=== PATIENT | male | born 1960 | race Hispanic/Latino ===

== ENCOUNTER 2018-03-09 15:17 | Inpatient (IN) | payer OTHER ==
[~2018-03-09] VITALS: Ht 167.6 cm; Wt 83.6 kg
[~2018-03-09 15:17] MED LIST: INSU100V12 SQ; LACT10SO9 PO; LISI10TA7 PO; OMEP20TA25 PO; SPIR100T5 PO
[2018-03-09] MEDS ORDERED: IOHEXOL-350 75 ML VIAL IV ONE (15:53)
[2018-03-09 16:04] LABS: BASOPHILS % (AUTO) 0.3 % (0.0-5.0); EOSINOPHILS % (AUTO) 1.5 % (0.0-8.0); HEMATOCRIT 40.9 % (42-54); MEAN CORPUSCULAR HEMOGLOBIN 28.6 pg (27.0-33.0); MEAN CORPUSCULAR HGB CONC 33.5 g/dL (32.0-36.0); MEAN CORPUSCULAR VOLUME 85.3 fL (79-99); MONOCYTES % (AUTO) 5.9 % (3.0-13.0); NEUTROPHILS % (AUTO) 84.3 % (40.0-77.0); PLATELET COUNT (AUTO) 124 K/uL (130-400); RED BLOOD CELL COUNT(AUTO) 4.79 MIL/uL (4.50-6.20); RED CELL DISTRIBUTION WIDTH 13.8 % (11.0-15.5); WHITE BLOOD COUNT (AUTO) 9.5 K/uL (4.8-10.8)
[2018-03-09] MEDS ORDERED: ONDANSETRON HCL 4 MG/2 ML VIAL ONE (16:08)
[2018-03-09] MEDS ORDERED: KETOROLAC TROMETHAMINE 30MG/ML ONE (16:08)
[2018-03-09 16:17] LABS: CREATININE 1.4 mg/dL (0.5-1.5); POTASSIUM 3.8 mmol/L (3.5-5.1)
[2018-03-09 16:21] LABS: ALBUMIN 4.7 g/dL (3.5-5.0); TOTAL PROTEIN, SERUM 8.9 g/dL (6.0-8.3)
[2018-03-09 16:25] LABS: APPEARANCE,URINE Clear (CLEAR); BILIRUBIN,URINE Small (NEGATIVE); COLOR,URINE Dark Yellow (YELLOW); GLUCOSE, URINE (UA) Negative (NEGATIVE); KETONES,URINE 15 mg/dL (NEGATIVE); LEUKOCYTE ESTERASE ,URINE Trace (NEGATIVE); NITRATE,URINE Negative (NEGATIVE); OCCULT BLOOD,URINE Negative (NEGATIVE); PH,URINE 5.5 (5.0-8.0); PROTEIN,URINE POS 1+ (NEGATIVE)
[2018-03-09 16:31] LABS: BACTERIA,URINE Rare /HPF (None Seen); MUCUS,URINE Moderate LPF (None Seen); RBC,URINE None Seen /HPF (0-1); WBC,URINE 0-1 /HPF (0-1)
[2018-03-09] MEDS ORDERED: LEVOFLOXACIN 500 MG/D5W 100 ML 100 ML IV SCH (18:15)
[2018-03-09] MEDS ORDERED: ONDANSETRON HCL MDV 20ML 2 MG/ML VIAL IVP SCH (18:15)
[2018-03-09 22:25] VITALS: BP 136/79
[2018-03-09] MEDS: METRONIDAZOLE 500MG/100ML BAG 100 ML IV SCH (22:51)
[2018-03-09] MEDS: LACTATED RINGERS 1000ML 1,000 ML IV SCH (22:51)
[2018-03-09] MEDS: MORPHINE SULFATE 2 MG/ML 1ML SYG IV PRN (22:52)
[2018-03-09] MEDS ORDERED: INSU100V12 SQ (23:33)
[2018-03-09] MEDS ORDERED: LACT10SO PO (23:33)
[2018-03-10] VITALS (7 sets, daily range): BP systolic 99–148; BP diastolic 64–76
[2018-03-10] MEDS: LACTATED RINGERS 1000ML 1,000 ML IV SCH ×3 (02:18→20:05)
[2018-03-10] MEDS: METRONIDAZOLE 500MG/100ML BAG 100 ML IV SCH ×2 (03:08→10:19)
[2018-03-10 05:38] LABS: BASOPHILS % (AUTO) 0.5 % (0.0-5.0); EOSINOPHILS % (AUTO) 2.5 % (0.0-8.0); HEMATOCRIT 32.4 % (42-54); LYMPHOCYTES % (AUTO) 13.3 % (21.0-51.0); MEAN CORPUSCULAR HEMOGLOBIN 29.8 pg (27.0-33.0); MEAN CORPUSCULAR VOLUME 85.1 fL (79-99); MONOCYTES % (AUTO) 7.4 % (3.0-13.0); NEUTROPHILS % (AUTO) 76.3 % (40.0-77.0); PLATELET COUNT (AUTO) 105 K/uL (130-400); RED BLOOD CELL COUNT(AUTO) 3.81 MIL/uL (4.50-6.20); RED CELL DISTRIBUTION WIDTH 13.7 % (11.0-15.5); WHITE BLOOD COUNT (AUTO) 6.3 K/uL (4.8-10.8)
[2018-03-10 05:48] LABS: INR 1.06 (0.85-1.15); PARTIAL THROMBOPLASTIN TIME 30.9 SEC (26.3-35.5); PROTHROMBIN TIME 11.1 SEC (9.6-11.6)
[2018-03-10 05:54] LABS: ALBUMIN 3.2 g/dL (3.5-5.0); BILIRUBIN,TOTAL 0.8 mg/dL (0.2-1.0); CREATININE 1.2 mg/dL (0.5-1.5); POTASSIUM 3.8 mmol/L (3.5-5.1); TOTAL PROTEIN, SERUM 6.6 g/dL (6.0-8.3)
[2018-03-10] MEDS: INSULIN HUMULIN R 100 UNIT/ML 3ML SQ SCH ×4 (06:00→18:00)
[2018-03-10] MEDS: PANTOPRAZOLE SODIUM 40 MG TABLET.DR PO SCH (09:00)
[2018-03-10] MEDS: MORPHINE SULFATE 2 MG/ML 1ML SYG IV PRN ×2 (16:53→22:49)
[2018-03-11] MEDS: LACTATED RINGERS 1000ML 1,000 ML IV SCH ×3 (03:14→21:29)
[2018-03-11 03:15] VITALS: BP 136/66
[2018-03-11 05:03] LABS: BASOPHILS % (AUTO) 0.5 % (0.0-5.0); EOSINOPHILS % (AUTO) 2.6 % (0.0-8.0); HEMATOCRIT 31.5 % (42-54); LYMPHOCYTES % (AUTO) 14.9 % (21.0-51.0); MEAN CORPUSCULAR HEMOGLOBIN 29.1 pg (27.0-33.0); MEAN CORPUSCULAR HGB CONC 34.6 g/dL (32.0-36.0); MONOCYTES % (AUTO) 6.9 % (3.0-13.0); NEUTROPHILS % (AUTO) 75.1 % (40.0-77.0); PLATELET COUNT (AUTO) 82 K/uL (130-400); RED BLOOD CELL COUNT(AUTO) 3.76 MIL/uL (4.50-6.20); RED CELL DISTRIBUTION WIDTH 13.3 % (11.0-15.5); WHITE BLOOD COUNT (AUTO) 4.8 K/uL (4.8-10.8)
[2018-03-11 05:14] LABS: POTASSIUM 3.4 mmol/L (3.5-5.1)
[2018-03-11] MEDS ORDERED: POTASSIUM CHLORIDE 20MEQ/100ML 100 ML IV PRN (05:45)
[2018-03-11] MEDS ORDERED: LIDOCAINE HCL-MPF 1% 2ML VIAL IVP PRN (05:45)
[2018-03-11] MEDS: INSULIN HUMULIN R 100 UNIT/ML 3ML SQ SCH ×4 (05:49→17:11)
[2018-03-11 07:00] VITALS: BP 125/72
[2018-03-11] MEDS: PANTOPRAZOLE SODIUM 40 MG TABLET.DR PO SCH (09:21)
[2018-03-11] MEDS: KETOROLAC TROMETHAMINE 15MG/ML IV PRN (09:22)
[2018-03-11 11:00] VITALS: BP 122/63
[2018-03-11 16:00] VITALS: BP 116/63
[2018-03-11 20:00] VITALS: BP 132/81
[2018-03-11] MEDS: MORPHINE SULFATE 2 MG/ML 1ML SYG IV PRN (21:31)
[2018-03-12] VITALS: BP 122/63
[2018-03-12 04:00] VITALS: BP 140/72
[2018-03-12] MEDS: LACTATED RINGERS 1000ML 1,000 ML IV SCH ×2 (05:29→13:49)
[2018-03-12 05:30] LABS: BASOPHILS % (AUTO) 0.5 % (0.0-5.0); EOSINOPHILS % (AUTO) 3.5 % (0.0-8.0); HEMATOCRIT 30.3 % (42-54); LYMPHOCYTES % (AUTO) 18.5 % (21.0-51.0); MEAN CORPUSCULAR HEMOGLOBIN 29.7 pg (27.0-33.0); MEAN CORPUSCULAR VOLUME 84.9 fL (79-99); MONOCYTES % (AUTO) 8.3 % (3.0-13.0); NEUTROPHILS % (AUTO) 69.2 % (40.0-77.0); PLATELET COUNT (AUTO) 92 K/uL (130-400); RED BLOOD CELL COUNT(AUTO) 3.57 MIL/uL (4.50-6.20); RED CELL DISTRIBUTION WIDTH 13.3 % (11.0-15.5); WHITE BLOOD COUNT (AUTO) 3.9 K/uL (4.8-10.8)
[2018-03-12 05:41] LABS: CREATININE 1.1 mg/dL (0.5-1.5); POTASSIUM 3.8 mmol/L (3.5-5.1)
[2018-03-12] MEDS: INSULIN HUMULIN R 100 UNIT/ML 3ML SQ SCH ×3 (05:44→14:26)
[2018-03-12 07:00] VITALS: BP 139/81
[2018-03-12] MEDS: KETOROLAC TROMETHAMINE 15MG/ML IV PRN (08:29)
[2018-03-12] MEDS: PANTOPRAZOLE SODIUM 40 MG TABLET.DR PO SCH (08:29)
[2018-03-12 11:00] VITALS: BP 112/68
== END 2018-03-12 16:31 | disposition home or self-care (01) | DRG 390 ==
LOC: EDH 15:17 → EDHIP 18:14 → 3AH 21:43
PROVIDERS: ADMIT Hospitalist; ATTEND Hospitalist
PROC: 0D9670Z Drainage of Stomach with Drainage Device, Via Natural or Artificial Opening (ICD-10-PCS; principal; 2018-03-09)
DX: K56.609 Unspecified intestinal obstruction, unspecified as to partial versus complete obstruction (principal); E11.21 Type 2 diabetes mellitus with diabetic nephropathy; K70.31 Alcoholic cirrhosis of liver with ascites; I10 Essential (primary) hypertension; F19.10 Other psychoactive substance abuse, uncomplicated; F12.90 Cannabis use, unspecified, uncomplicated; K76.0 Fatty (change of) liver, not elsewhere classified; Z79.4 Long term (current) use of insulin; Z80.8 Family history of malignant neoplasm of other organs or systems; Z82.49 Family history of ischemic heart disease and other diseases of the circulatory system; Z83.3 Family history of diabetes mellitus; Z90.49 Acquired absence of other specified parts of digestive tract; Z85.89 Personal history of malignant neoplasm of other organs and systems
CPT/HCPCS: 36415; 74177; 80048; 80053; 81001; 82948; 85025; 85610; 85730; 87040; J1885; J1956; J2405; J3480; J3490; J7120; Q9967

== ENCOUNTER 2020-07-21 18:25 | Inpatient (IN) | payer OTHER ==
[~2020-07-21] VITALS: Ht 175.3 cm; Wt 79.4 kg
[~2020-07-21 18:25] MED LIST changes: +LACT10SO5 PO; -LACT10SO9 PO; +LISI10TA24 PO; -LISI10TA7 PO
[2020-07-21] MEDS ORDERED: ONDANSETRON HCL 4 MG/2 ML VIAL ONE (18:39)
[2020-07-21 18:55] LABS: BASOPHILS % (AUTO) 0.2 % (0.0-5.0); HEMATOCRIT 38.3 % (42-54); LYMPHOCYTES % (AUTO) 2.4 % (21.0-51.0); MEAN CORPUSCULAR HEMOGLOBIN 28.8 pg (27.0-33.0); MEAN CORPUSCULAR HGB CONC 35.2 g/dL (32.0-36.0); MEAN CORPUSCULAR VOLUME 81.7 fL (79-99); MONOCYTES % (AUTO) 2.4 % (3.0-13.0); NEUTROPHILS % (AUTO) 94.6 % (40.0-77.0); PLATELET COUNT (AUTO) 180 K/uL (130-400); RED BLOOD CELL COUNT(AUTO) 4.69 MIL/uL (4.50-6.20); RED CELL DISTRIBUTION WIDTH 12.7 % (11.0-15.5); WHITE BLOOD COUNT (AUTO) 12.1 K/uL (4.8-10.8)
[2020-07-21] MEDS ORDERED: SODIUM CHLORIDE 0.9% 1000ML 1,000 ML IV ONE (19:04)
[2020-07-21 19:07] LABS: CREATININE 2.5 mg/dL (0.5-1.5); POTASSIUM 4.3 mmol/L (3.5-5.1)
[2020-07-21 19:12] LABS: ALBUMIN 4.9 g/dL (3.5-5.0); BILIRUBIN,TOTAL 1.2 mg/dL (0.2-1.0); TOTAL PROTEIN, SERUM 8.6 g/dL (6.0-8.3)
[2020-07-21] MEDS ORDERED: INSULIN HUMULIN R 100 UNIT/ML 3ML ONE (19:43)
[2020-07-21] MEDS ORDERED: HYDROMORPHONE 1 MG/1 ML AMP ONE (21:55)
[2020-07-21] MEDS ORDERED: LACTULOSE 20 GM/30 ML UDCUP PO PRN (22:00)
[2020-07-21] MEDS ORDERED: ZOLPIDEM TARTRATE 5 MG TAB PO PRN (22:00)
[2020-07-21] MEDS ORDERED: DiphenhydrAMINE HCL 50 MG/ML VIAL IV PRN (22:00)
[2020-07-21] MEDS ORDERED: ONDANSETRON HCL 4 MG/2 ML VIAL IV PRN (22:00)
[2020-07-21] MEDS: SODIUM CHLORIDE 0.9% 1000ML 1,000 ML IV SCH (23:34)
[2020-07-21] MEDS ORDERED: CYAN200017 PO (23:58)
[2020-07-21] MEDS ORDERED: CHOL200013 PO (23:58)
[2020-07-22] VITALS (8 sets, daily range): BP systolic 117–158; BP diastolic 55–91
[2020-07-22] MEDS ORDERED: DEXTROSE 50%-WATER 50 ML DISP.SYRIN IV PRN (00:30)
[2020-07-22] MEDS ORDERED: GLUCAGON 1MG KIT 1 MG ML IM PRN (00:30)
[2020-07-22] MEDS: INSULIN HUMULIN R 100 UNIT/ML 3ML SQ SCH ×5 (01:00→21:42)
[2020-07-22] MEDS: HYDROMORPHONE 1 MG/1 ML AMP IV PRN ×3 (01:41→10:37)
[2020-07-22 03:44] LABS: HEMATOCRIT 33.9 % (42-54); MEAN CORPUSCULAR HEMOGLOBIN 28.4 pg (27.0-33.0); MEAN CORPUSCULAR HGB CONC 33.9 g/dL (32.0-36.0); MEAN CORPUSCULAR VOLUME 83.7 fL (79-99); RED BLOOD CELL COUNT(AUTO) 4.05 MIL/uL (4.50-6.20); RED CELL DISTRIBUTION WIDTH 13.1 % (11.0-15.5); WHITE BLOOD COUNT (AUTO) 10.4 K/uL (4.8-10.8)
[2020-07-22 04:11] LABS: ALBUMIN 4.1 g/dL (3.5-5.0); BILIRUBIN,TOTAL 0.8 mg/dL (0.2-1.0); POTASSIUM 4.2 mmol/L (3.5-5.1); TOTAL PROTEIN, SERUM 7.4 g/dL (6.0-8.3)
[2020-07-22 04:20] LABS: INR 1.08 (0.85-1.15); PROTHROMBIN TIME 11.7 SEC (9.6-11.6)
[2020-07-22 04:21] LABS: PARTIAL THROMBOPLASTIN TIME 24.7 SEC (26.3-35.5)
[2020-07-22] MEDS ORDERED: HYDRALAZINE HCL 20 MG/ML VIAL IM PRN (06:15)
[2020-07-22] MEDS ORDERED: IOHEXOL-350 75 ML VIAL IV ONE (07:15)
[2020-07-22] MEDS ORDERED: DIATR MEGLU/DIATRIZOATE SODIUM 30 ML BOTTLE ONE (07:15)
[2020-07-22] MEDS ORDERED: INSULIN HUMULIN R 100 UNIT/ML 3ML SQ SCH (07:30)
[2020-07-22] MEDS ORDERED: HYDROMORPHONE HCL 0.5 MG/0.5 ML ML ONE (09:45)
[2020-07-22] MEDS: SODIUM CHLORIDE 0.9% 1000ML 1,000 ML IV SCH ×2 (10:31→17:02)
[2020-07-22] MEDS: FAMOTIDINE/PF 20 MG/2 ML VIAL IV SCH ×2 (10:32→21:11)
[2020-07-22] MEDS ORDERED: LIDOCAINE HCL-MPF 1% 2ML VIAL IV PRN ×2 (12:15)
[2020-07-22] MEDS ORDERED: POTASSIUM CHLORIDE 10% ELIXIR 20 MEQ/15 ML UDCUP PO PRN (12:15)
[2020-07-22] MEDS ORDERED: POTASSIUM CHLORIDE 20MEQ/100ML 100 ML IV PRN ×2 (12:15)
[2020-07-22] MEDS ORDERED: MAGNESIUM 2GM PREMIX 50ML 50 ML IV PRN (12:15)
[2020-07-22] MEDS ORDERED: POTASSIUM CHLORIDE 20 MEQ ERTAB PO PRN (12:15)
[2020-07-22] MEDS ORDERED: MAGNESIUM CITRATE 296 ML SOLUTION PO SCH (21:00)
[2020-07-23] VITALS (7 sets, daily range): BP systolic 112–140; BP diastolic 61–89
[2020-07-23 04:42] LABS: MEAN CORPUSCULAR HEMOGLOBIN 28.4 pg (27.0-33.0); MEAN CORPUSCULAR HGB CONC 33.5 g/dL (32.0-36.0); MEAN CORPUSCULAR VOLUME 84.6 fL (79-99); RED BLOOD CELL COUNT(AUTO) 4.02 MIL/uL (4.50-6.20); RED CELL DISTRIBUTION WIDTH 12.8 % (11.0-15.5); WHITE BLOOD COUNT (AUTO) 8.5 K/uL (4.8-10.8)
[2020-07-23 05:06] LABS: CREATININE 1.4 mg/dL (0.5-1.5); MAGNESIUM 2.1 mg/dL (1.80-2.40); POTASSIUM 4.6 mmol/L (3.5-5.1)
[2020-07-23] MEDS: INSULIN HUMULIN R 100 UNIT/ML 3ML SQ SCH ×4 (06:43→21:00)
[2020-07-23] MEDS: SODIUM CHLORIDE 0.9% 1000ML 1,000 ML IV SCH ×2 (06:45→13:16)
[2020-07-23] MEDS: FAMOTIDINE/PF 20 MG/2 ML VIAL IV SCH ×2 (08:50→21:07)
[2020-07-23] MEDS ORDERED: DIATR MEGLU/DIATRIZOATE SODIUM 30 ML BOTTLE ONE ×2 (09:06→09:13)
[2020-07-24 05:13] VITALS: BP 123/71
[2020-07-24 06:20] LABS: HEMATOCRIT 31.4 % (42-54); MEAN CORPUSCULAR HEMOGLOBIN 28.4 pg (27.0-33.0); MEAN CORPUSCULAR HGB CONC 34.1 g/dL (32.0-36.0); MEAN CORPUSCULAR VOLUME 83.3 fL (79-99); RED BLOOD CELL COUNT(AUTO) 3.77 MIL/uL (4.50-6.20); RED CELL DISTRIBUTION WIDTH 12.5 % (11.0-15.5); WHITE BLOOD COUNT (AUTO) 5.1 K/uL (4.8-10.8)
[2020-07-24 06:27] LABS: CREATININE 1.2 mg/dL (0.5-1.5); MAGNESIUM 1.9 mg/dL (1.80-2.40)
[2020-07-24] MEDS: INSULIN HUMULIN R 100 UNIT/ML 3ML SQ SCH ×3 (07:10→16:17)
[2020-07-24 08:00] VITALS: BP 142/74
[2020-07-24] MEDS: FAMOTIDINE/PF 20 MG/2 ML VIAL IV SCH (09:44)
[2020-07-24 11:00] VITALS: BP 120/65
[2020-07-24] MEDS: SODIUM CHLORIDE 0.9% 1000ML 1,000 ML IV SCH (11:24)
[2020-07-24 16:00] VITALS: BP 148/76
== END 2020-07-24 18:00 | disposition home or self-care (01) | DRG 390 ==
LOC: EDH 18:25 → OBSVTOIN 20:37 → EDHIP 20:37 → 3CH 22:43
PROVIDERS: ADMIT Internal Medicine; ATTEND Internal Medicine
PROC: 0D9670Z Drainage of Stomach with Drainage Device, Via Natural or Artificial Opening (ICD-10-PCS; principal; 2020-07-21)
DX: K56.699 Other intestinal obstruction unspecified as to partial versus complete obstruction (principal); N28.9 Disorder of kidney and ureter, unspecified; E11.9 Type 2 diabetes mellitus without complications; F12.90 Cannabis use, unspecified, uncomplicated; I10 Essential (primary) hypertension; F10.10 Alcohol abuse, uncomplicated; K70.30 Alcoholic cirrhosis of liver without ascites; Z79.4 Long term (current) use of insulin; Z82.49 Family history of ischemic heart disease and other diseases of the circulatory system; Z83.3 Family history of diabetes mellitus; Z87.891 Personal history of nicotine dependence
CPT/HCPCS: 36415; 74018; 74176; 74250; 80048; 80053; 82140; 82948; 83735; 85025; 85027; 85610; 85730; 99291; G0378; J1170; J1815; J2405; J3490; J7030; Q9963; Q9967

== ENCOUNTER 2020-07-30 11:30 | Inpatient (IN) | payer OTHER ==
[~2020-07-30] VITALS: Ht 167.6 cm; Wt 83.8 kg
[~2020-07-30 11:30] MED LIST changes: +CHOL200013 PO; -INSU100V12 SQ; +[UNRECOGNIZED DRUG - CODE] PO
[2020-07-30 12:06] LABS: BASOPHILS % (AUTO) 0.5 % (0.0-5.0); EOSINOPHILS % (AUTO) 0.8 % (0.0-8.0); HEMATOCRIT 36.5 % (42-54); LYMPHOCYTES % (AUTO) 6.4 % (21.0-51.0); MEAN CORPUSCULAR HEMOGLOBIN 29.2 pg (27.0-33.0); MEAN CORPUSCULAR HGB CONC 34.5 g/dL (32.0-36.0); MEAN CORPUSCULAR VOLUME 84.5 fL (79-99); MONOCYTES % (AUTO) 6.4 % (3.0-13.0); NEUTROPHILS % (AUTO) 85.6 % (40.0-77.0); PLATELET COUNT (AUTO) 158 K/uL (130-400); RED BLOOD CELL COUNT(AUTO) 4.32 MIL/uL (4.50-6.20); RED CELL DISTRIBUTION WIDTH 13.2 % (11.0-15.5); WHITE BLOOD COUNT (AUTO) 8.6 K/uL (4.8-10.8)
[2020-07-30 12:14] LABS: CREATININE 1.5 mg/dL (0.5-1.5); POTASSIUM 4.2 mmol/L (3.5-5.1)
[2020-07-30 12:18] LABS: ALBUMIN 4.4 g/dL (3.5-5.0); BILIRUBIN,TOTAL 0.6 mg/dL (0.2-1.0)
[2020-07-30 12:20] LABS: APPEARANCE,URINE Clear (CLEAR); BILIRUBIN,URINE Negative (NEGATIVE); COLOR,URINE Dark Yellow (YELLOW); GLUCOSE, URINE (UA) Negative (NEGATIVE); KETONES,URINE 15 mg/dL (NEGATIVE); LEUKOCYTE ESTERASE ,URINE Negative (NEGATIVE); NITRATE,URINE Negative (NEGATIVE); OCCULT BLOOD,URINE Negative (NEGATIVE); PH,URINE 5.5 (5.0-8.0); PROTEIN,URINE POS 1+ mg/dL (NEGATIVE)
[2020-07-30 12:33] LABS: AMPHET/METH SCREEN,URINE NEGATIVE (NEGATIVE); BARBITURATE SCREEN, URINE NEGATIVE (NEGATIVE); BENZODIAZEPINES SCREEN,URINE NEGATIVE (NEGATIVE); CANNABINOID SCREEN,URINE POSITIVE (NEGATIVE); COCAINE SCREEN,URINE NEGATIVE (NEGATIVE); OPIATE SCREEN,URINE NEGATIVE (NEGATIVE); PHENCYCLIDINE SCREEN,URINE NEGATIVE (NEGATIVE)
[2020-07-30] MEDS ORDERED: ONDANSETRON 4MG INJ ONE (13:13)
[2020-07-30 13:42] LABS: BACTERIA,URINE Few /HPF (None Seen); RBC,URINE 0-1 /HPF (0-1); WBC,URINE 0-1 /HPF (0-1)
[2020-07-30 13:43] LABS: SQUAMOUS EPITHELIAL CELL,UR 0-2 /HPF (0-2)
[2020-07-30] MEDS ORDERED: KETOROLAC 30MG VIAL (30MG/ML) ONE (13:54)
[2020-07-30] MEDS: ZOSYN 3.375GM+NS 50ML 50 ML IV SCH ×2 (14:45→22:19)
[2020-07-30] MEDS ORDERED: ACETAMINOPHEN 650 MG SUPPOSITORY RC PRN (14:45)
[2020-07-30] MEDS: LACTATED RINGERS 1000ML 1,000 ML IV SCH (14:45)
[2020-07-30] MEDS: DEXTROSE 5%-LACTATED RINGERS 1,000 ML IV SCH (14:45)
[2020-07-30] MEDS ORDERED: ONDANSETRON 4MG INJ IVP PRN (14:45)
[2020-07-30] MEDS ORDERED: ACETAMINOPHEN 325 MG TAB PO PRN (14:45)
[2020-07-30] MEDS ORDERED: ZOSYN 3.375GM +NS 50ML IV SCH (14:45)
[2020-07-30] MEDS ORDERED: ALBUTEROL 0.083% 2.5 MG/3 ML INH IH PRN (14:45)
[2020-07-30] MEDS ORDERED: LABETALOL 20MG SYG IV PRN (14:45)
[2020-07-30] MEDS ORDERED: LACTATED RINGERS 1000ML 1,000 ML IV ONE (15:43)
[2020-07-30] MEDS ORDERED: ZOSYN 3.375GM+NS 50ML 50 ML IV ONE (15:43)
[2020-07-30 15:57] LABS: INR 1.05 (0.85-1.15); PROTHROMBIN TIME 11.4 SEC (9.6-11.6)
[2020-07-30 16:15] VITALS: BP 109/57
[2020-07-30] MEDS: INSULIN HUMULIN R 100 UNIT/ML 3ML SQ SCH ×2 (16:30→20:53)
[2020-07-30] MEDS: HYDROMORPHONE 1 MG INJ IVP PRN (16:36)
[2020-07-30 20:00] VITALS: BP 103/57
[2020-07-30] MEDS: HYDROMORPHONE 0.5 MG SYG (0.5MG/0.5ML) IVP PRN (20:50)
[2020-07-31] VITALS: BP 100/49
[2020-07-31 04:00] VITALS: BP 90/53
[2020-07-31] MEDS: LACTATED RINGERS 1000ML 1,000 ML IV SCH ×3 (04:00→15:05)
[2020-07-31] MEDS: DEXTROSE 5%-LACTATED RINGERS 1,000 ML IV SCH ×2 (04:05→17:25)
[2020-07-31 05:32] LABS: BASOPHILS % (AUTO) 0.3 % (0.0-5.0); EOSINOPHILS % (AUTO) 2.3 % (0.0-8.0); HEMATOCRIT 30.9 % (42-54); MEAN CORPUSCULAR HEMOGLOBIN 28.9 pg (27.0-33.0); MEAN CORPUSCULAR VOLUME 85.1 fL (79-99); NEUTROPHILS % (AUTO) 79.1 % (40.0-77.0); PLATELET COUNT (AUTO) 129 K/uL (130-400); RED BLOOD CELL COUNT(AUTO) 3.63 MIL/uL (4.50-6.20); WHITE BLOOD COUNT (AUTO) 6.1 K/uL (4.8-10.8)
[2020-07-31 05:37] LABS: CREATININE 1.7 mg/dL (0.5-1.5); MAGNESIUM 1.6 mg/dL (1.80-2.40); PHOSPHORUS 3.7 mg/dL (2.5-4.9); POTASSIUM 4.1 mmol/L (3.5-5.1)
[2020-07-31] MEDS: ZOSYN 3.375GM+NS 50ML 50 ML IV SCH ×3 (05:37→21:37)
[2020-07-31] MEDS: HYDROMORPHONE 0.5 MG SYG (0.5MG/0.5ML) IVP PRN ×3 (05:52→21:39)
[2020-07-31] MEDS: INSULIN HUMULIN R 100 UNIT/ML 3ML SQ SCH ×4 (07:27→21:00)
[2020-07-31 08:17] VITALS: BP 105/53
[2020-07-31] MEDS ORDERED: ENOXAPARIN SODIUM 40 MG/0.4 ML SYRINGE SQ SCH (09:00)
[2020-07-31] MEDS: HYDROMORPHONE 1 MG INJ IVP PRN (11:04)
[2020-07-31 12:20] VITALS: BP 129/58
[2020-07-31 17:22] VITALS: BP 120/72
[2020-07-31 20:00] VITALS: BP 128/64
[2020-08-01] VITALS (19 sets, daily range): BP systolic 97–129; BP diastolic 55–71
[2020-08-01 05:44] LABS: HEMATOCRIT 30.1 % (42-54); MEAN CORPUSCULAR HEMOGLOBIN 28.4 pg (27.0-33.0); MEAN CORPUSCULAR HGB CONC 33.6 g/dL (32.0-36.0); MEAN CORPUSCULAR VOLUME 84.6 fL (79-99); RED BLOOD CELL COUNT(AUTO) 3.56 MIL/uL (4.50-6.20); RED CELL DISTRIBUTION WIDTH 12.8 % (11.0-15.5)
[2020-08-01] MEDS: ZOSYN 3.375GM+NS 50ML 50 ML IV SCH ×3 (05:56→23:45)
[2020-08-01 05:58] LABS: INR 1.1 (0.85-1.15); PROTHROMBIN TIME 11.9 SEC (9.6-11.6)
[2020-08-01 06:04] LABS: CREATININE 1.4 mg/dL (0.5-1.5); POTASSIUM 3.9 mmol/L (3.5-5.1)
[2020-08-01] MEDS: DEXTROSE 5%-LACTATED RINGERS 1,000 ML IV SCH ×2 (06:45→20:05)
[2020-08-01] MEDS: INSULIN HUMULIN R 100 UNIT/ML 3ML SQ SCH ×2 (07:30→11:30)
[2020-08-01] MEDS ORDERED: MAGNESIUM 2GM PREMIX 50ML 50 ML IV ONE (08:31)
[2020-08-01] MEDS: HYDROMORPHONE 0.5 MG SYG (0.5MG/0.5ML) IVP PRN ×3 (09:20→16:07)
[2020-08-01] MEDS ORDERED: MIDAZOLAM HCL 1 MG/ML 2ML VIAL ONE (09:38)
[2020-08-01] MEDS ORDERED: FENTANYL CITRATE PF 50 MCG/1 ML 2ML VIAL ONE ×4 (09:39→12:44)
[2020-08-01] MEDS ORDERED: ALBUMIN (HUMAN) 25% 100 ML IV ONE (10:34)
[2020-08-01] MEDS ORDERED: PHYTONADIONE 10 MG in 0.9%NACL 50ML 50 ML SQ SCH ×2 (13:00→23:00)
[2020-08-01] MEDS ORDERED: BUPIVACAINE/PF 0.5% 30ML VIAL ONE (13:20)
[2020-08-01] MEDS: LACTATED RINGERS 1000ML 1,000 ML IV SCH (13:45)
[2020-08-01] MEDS ORDERED: MORPHINE 4 MG SYG IV PRN (15:30)
[2020-08-01] MEDS: HYDROMORPHONE 1 MG INJ IVP PRN ×2 (20:04→23:45)
[2020-08-01] MEDS: LACTULOSE 20 GM/30 ML UDCUP PO SCH (21:00)
[2020-08-02] VITALS (7 sets, daily range): BP systolic 105–146; BP diastolic 57–78
[2020-08-02] MEDS: LACTATED RINGERS 1000ML 1,000 ML IV SCH ×4 (01:03→23:20)
[2020-08-02] MEDS: HYDROMORPHONE 1 MG INJ IVP PRN ×4 (04:09→21:01)
[2020-08-02] MEDS: ZOSYN 3.375GM+NS 50ML 50 ML IV SCH ×3 (05:37→21:01)
[2020-08-02 05:42] LABS: BASOPHILS % (AUTO) 0.1 % (0.0-5.0); HEMATOCRIT 28.8 % (42-54); LYMPHOCYTES % (AUTO) 1.7 % (21.0-51.0); MEAN CORPUSCULAR HEMOGLOBIN 29.1 pg (27.0-33.0); MEAN CORPUSCULAR VOLUME 85.5 fL (79-99); PLATELET COUNT (AUTO) 115 K/uL (130-400); RED BLOOD CELL COUNT(AUTO) 3.37 MIL/uL (4.50-6.20); RED CELL DISTRIBUTION WIDTH 13.2 % (11.0-15.5); WHITE BLOOD COUNT (AUTO) 12.4 K/uL (4.8-10.8)
[2020-08-02] MEDS: INSULIN HUMULIN R 100 UNIT/ML 3ML SQ SCH ×4 (05:42→21:12)
[2020-08-02 06:09] LABS: CREATININE 1.3 mg/dL (0.5-1.5); MAGNESIUM 1.6 mg/dL (1.80-2.40); PHOSPHORUS 2.7 mg/dL (2.5-4.9); POTASSIUM 4.2 mmol/L (3.5-5.1); TOTAL PROTEIN, SERUM 5.8 g/dL (6.0-8.3)
[2020-08-02 06:11] LABS: INR 1.26 (0.85-1.15); PARTIAL THROMBOPLASTIN TIME 29.2 SEC (26.3-35.5); PROTHROMBIN TIME 12.9 SEC (9.6-11.6)
[2020-08-02] MEDS: CHOLECALCIFEROL 100 MCG PO SCH (09:00)
[2020-08-02] MEDS: SPIRONOLACTONE 25 MG TAB PO SCH (12:38)
[2020-08-02] MEDS: LISINOPRIL 10 MG TABLET PO SCH (12:39)
[2020-08-02] MEDS: CYANOCOBALAMIN (VITAMIN B-12) 1,000 MCG TABLET PO SCH (12:39)
[2020-08-02] MEDS: PANTOPRAZOLE 40 MG TAB DR PO SCH (12:40)
[2020-08-02] MEDS: LACTULOSE 20 GM/30 ML UDCUP PO SCH ×2 (12:44→21:01)
[2020-08-02] MEDS ORDERED: HYDROMORPHONE 0.5 MG SYG (0.5MG/0.5ML) IVP ONE (14:00)
[2020-08-03] MEDS: HYDROMORPHONE 1 MG INJ IVP PRN ×8 (00:04→22:16)
[2020-08-03] MEDS: LACTATED RINGERS 1000ML 1,000 ML IV SCH ×4 (03:03→22:16)
[2020-08-03 04:17] VITALS: BP 103/59
[2020-08-03 05:44] LABS: BASOPHILS % (AUTO) 0.2 % (0.0-5.0); EOSINOPHILS % (AUTO) 0.1 % (0.0-8.0); HEMATOCRIT 26.5 % (42-54); LYMPHOCYTES % (AUTO) 4.8 % (21.0-51.0); MEAN CORPUSCULAR HEMOGLOBIN 28.9 pg (27.0-33.0); MEAN CORPUSCULAR HGB CONC 33.2 g/dL (32.0-36.0); MEAN CORPUSCULAR VOLUME 86.9 fL (79-99); MONOCYTES % (AUTO) 7.4 % (3.0-13.0); PLATELET COUNT (AUTO) 117 K/uL (130-400); RED BLOOD CELL COUNT(AUTO) 3.05 MIL/uL (4.50-6.20); RED CELL DISTRIBUTION WIDTH 13.6 % (11.0-15.5); WHITE BLOOD COUNT (AUTO) 10.2 K/uL (4.8-10.8)
[2020-08-03 06:01] LABS: ALBUMIN 2.8 g/dL (3.5-5.0); BILIRUBIN,TOTAL 1.2 mg/dL (0.2-1.0); CREATININE 1.3 mg/dL (0.5-1.5); MAGNESIUM 1.7 mg/dL (1.80-2.40); TOTAL PROTEIN, SERUM 6.2 g/dL (6.0-8.3)
[2020-08-03] MEDS: ZOSYN 3.375GM+NS 50ML 50 ML IV SCH ×3 (06:03→22:16)
[2020-08-03] MEDS: INSULIN HUMULIN R 100 UNIT/ML 3ML SQ SCH ×4 (06:03→20:07)
[2020-08-03] MEDS: MAGNESIUM 2GM PREMIX 50ML 50 ML IV PRN (06:37)
[2020-08-03 08:05] VITALS: BP 123/61
[2020-08-03] MEDS ORDERED: IOHEXOL-350 50ML VIAL IV ONE (08:59)
[2020-08-03] MEDS: CHOLECALCIFEROL 100 MCG PO SCH (09:00)
[2020-08-03] MEDS: LACTULOSE 20 GM/30 ML UDCUP PO SCH ×2 (10:04→19:50)
[2020-08-03] MEDS: CYANOCOBALAMIN (VITAMIN B-12) 1,000 MCG TABLET PO SCH (10:05)
[2020-08-03] MEDS: LISINOPRIL 10 MG TABLET PO SCH (10:05)
[2020-08-03] MEDS: PANTOPRAZOLE 40 MG TAB DR PO SCH (10:05)
[2020-08-03] MEDS: SPIRONOLACTONE 25 MG TAB PO SCH (10:05)
[2020-08-03 11:49] VITALS: BP 110/62
[2020-08-03] MEDS: DOCUSATE SODIUM 100 MG CAP PO SCH ×3 (14:45→19:50)
[2020-08-03 16:27] VITALS: BP 126/66
[2020-08-03 20:11] VITALS: BP 111/67
[2020-08-03 23:32] VITALS: BP 123/47
[2020-08-04] MEDS: HYDROMORPHONE 1 MG INJ IVP PRN ×7 (02:05→23:55)
[2020-08-04 04:06] VITALS: BP 125/70
[2020-08-04 05:15] LABS: HEMATOCRIT 25.8 % (42-54); MEAN CORPUSCULAR HEMOGLOBIN 28.7 pg (27.0-33.0); MEAN CORPUSCULAR HGB CONC 33.3 g/dL (32.0-36.0); RED CELL DISTRIBUTION WIDTH 13.3 % (11.0-15.5)
[2020-08-04 05:42] LABS: CREATININE 1.2 mg/dL (0.5-1.5); MAGNESIUM 1.7 mg/dL (1.80-2.40); POTASSIUM 3.7 mmol/L (3.5-5.1)
[2020-08-04] MEDS: INSULIN HUMULIN R 100 UNIT/ML 3ML SQ SCH ×4 (06:21→20:37)
[2020-08-04] MEDS: LACTATED RINGERS 1000ML 1,000 ML IV SCH ×3 (06:21→23:31)
[2020-08-04] MEDS: ZOSYN 3.375GM+NS 50ML 50 ML IV SCH ×3 (06:21→21:18)
[2020-08-04] MEDS: MAGNESIUM 2GM PREMIX 50ML 50 ML IV PRN (06:33)
[2020-08-04 07:53] VITALS: BP 149/67
[2020-08-04] MEDS: LISINOPRIL 10 MG TABLET PO SCH (09:00)
[2020-08-04] MEDS: SPIRONOLACTONE 25 MG TAB PO SCH (09:00)
[2020-08-04] MEDS: CHOLECALCIFEROL 100 MCG PO SCH (09:00)
[2020-08-04] MEDS: DOCUSATE SODIUM 100 MG CAP PO SCH ×2 (10:23→20:15)
[2020-08-04] MEDS: CYANOCOBALAMIN (VITAMIN B-12) 1,000 MCG TABLET PO SCH (10:23)
[2020-08-04] MEDS: LACTULOSE 20 GM/30 ML UDCUP PO SCH ×2 (10:25→20:16)
[2020-08-04] MEDS: PANTOPRAZOLE 40 MG TAB DR PO SCH (10:27)
[2020-08-04 11:14] VITALS: BP 149/67
[2020-08-04 16:27] VITALS: BP 125/71
[2020-08-04 20:04] VITALS: BP 129/66
[2020-08-05 00:08] VITALS: BP 120/62
[2020-08-05 04:12] VITALS: BP 144/70
[2020-08-05] MEDS: ZOSYN 3.375GM+NS 50ML 50 ML IV SCH ×3 (04:50→22:23)
[2020-08-05] MEDS: HYDROMORPHONE 1 MG INJ IVP PRN ×5 (04:50→20:14)
[2020-08-05 05:15] LABS: HEMATOCRIT 26.7 % (42-54); MEAN CORPUSCULAR HEMOGLOBIN 28.5 pg (27.0-33.0); MEAN CORPUSCULAR VOLUME 86.4 fL (79-99); RED BLOOD CELL COUNT(AUTO) 3.09 MIL/uL (4.50-6.20); RED CELL DISTRIBUTION WIDTH 13.2 % (11.0-15.5); WHITE BLOOD COUNT (AUTO) 6.2 K/uL (4.8-10.8)
[2020-08-05 05:33] LABS: CREATININE 1.3 mg/dL (0.5-1.5); MAGNESIUM 1.6 mg/dL (1.80-2.40); POTASSIUM 3.8 mmol/L (3.5-5.1)
[2020-08-05] MEDS: INSULIN HUMULIN R 100 UNIT/ML 3ML SQ SCH ×4 (06:01→21:14)
[2020-08-05] MEDS: LACTATED RINGERS 1000ML 1,000 ML IV SCH ×3 (06:17→23:22)
[2020-08-05] MEDS: MAGNESIUM 2GM PREMIX 50ML 50 ML IV PRN (06:36)
[2020-08-05] MEDS: PANTOPRAZOLE 40 MG TAB DR PO SCH (08:27)
[2020-08-05] MEDS: LACTULOSE 20 GM/30 ML UDCUP PO SCH ×2 (08:27→20:13)
[2020-08-05] MEDS: ENOXAPARIN SODIUM 40 MG/0.4 ML SYRINGE SQ SCH (08:27)
[2020-08-05 08:34] VITALS: BP 159/92
[2020-08-05] MEDS: CHOLECALCIFEROL 100 MCG PO SCH (08:37)
[2020-08-05] MEDS: CYANOCOBALAMIN (VITAMIN B-12) 1,000 MCG TABLET PO SCH (08:37)
[2020-08-05] MEDS: LISINOPRIL 10 MG TABLET PO SCH (08:37)
[2020-08-05] MEDS: SPIRONOLACTONE 25 MG TAB PO SCH (08:37)
[2020-08-05] MEDS: DOCUSATE SODIUM 100 MG CAP PO SCH ×2 (09:07→20:14)
[2020-08-05 11:18] VITALS: BP 116/62
[2020-08-05] MEDS ORDERED: HYDROCORTISONE 25 MG SUPPOSITORY PR PRN (16:00)
[2020-08-05 16:17] VITALS: BP 135/69
[2020-08-05 20:20] VITALS: BP 137/72
[2020-08-06] MEDS: HYDROMORPHONE 1 MG INJ IVP PRN ×2 (00:05→04:29)
[2020-08-06] MEDS: LACTATED RINGERS 1000ML 1,000 ML IV SCH ×2 (00:06→16:38)
[2020-08-06 00:16] VITALS: BP 128/70
[2020-08-06 04:16] VITALS: BP 122/71
[2020-08-06] MEDS: MAGNESIUM 2GM PREMIX 50ML 50 ML IV PRN (04:22)
[2020-08-06 05:11] LABS: MEAN CORPUSCULAR HEMOGLOBIN 28.5 pg (27.0-33.0); MEAN CORPUSCULAR HGB CONC 32.7 g/dL (32.0-36.0); MEAN CORPUSCULAR VOLUME 87.2 fL (79-99); RED BLOOD CELL COUNT(AUTO) 3.44 MIL/uL (4.50-6.20); RED CELL DISTRIBUTION WIDTH 13.2 % (11.0-15.5); WHITE BLOOD COUNT (AUTO) 6.7 K/uL (4.8-10.8)
[2020-08-06 05:27] LABS: CREATININE 1.2 mg/dL (0.5-1.5); MAGNESIUM 1.9 mg/dL (1.80-2.40); POTASSIUM 3.7 mmol/L (3.5-5.1)
[2020-08-06] MEDS: ZOSYN 3.375GM+NS 50ML 50 ML IV SCH ×3 (06:09→22:45)
[2020-08-06] MEDS: INSULIN HUMULIN R 100 UNIT/ML 3ML SQ SCH ×4 (06:42→21:29)
[2020-08-06 08:03] VITALS: BP 127/66
[2020-08-06] MEDS: CHOLECALCIFEROL 100 MCG PO SCH (09:00)
[2020-08-06] MEDS ORDERED: HYDROMORPHONE 0.5 MG SYG (0.5MG/0.5ML) IVP PRN (09:00)
[2020-08-06] MEDS: LISINOPRIL 10 MG TABLET PO SCH (09:39)
[2020-08-06] MEDS: LACTULOSE 20 GM/30 ML UDCUP PO SCH ×2 (09:39→21:03)
[2020-08-06] MEDS: PANTOPRAZOLE 40 MG TAB DR PO SCH (09:39)
[2020-08-06] MEDS: SPIRONOLACTONE 25 MG TAB PO SCH (09:40)
[2020-08-06] MEDS: HYDROCORTISONE 25 MG SUPPOSITORY PR SCH ×2 (09:40→21:00)
[2020-08-06] MEDS: CYANOCOBALAMIN (VITAMIN B-12) 1,000 MCG TABLET PO SCH (09:40)
[2020-08-06] MEDS: HYDROCODONE/ACETAMINOPHEN 5/325 MG TAB PO PRN (09:40)
[2020-08-06] MEDS: DOCUSATE SODIUM 100 MG CAP PO SCH ×2 (09:40→21:00)
[2020-08-06] MEDS: ENOXAPARIN SODIUM 40 MG/0.4 ML SYRINGE SQ SCH (09:41)
[2020-08-06 10:58] VITALS: BP 120/67
[2020-08-06 16:19] VITALS: BP 119/75
[2020-08-06] MEDS: KETOROLAC 30MG VIAL (30MG/ML) IV PRN (18:59)
[2020-08-06 19:33] VITALS: BP 111/66
[2020-08-07] VITALS (7 sets, daily range): BP systolic 115–163; BP diastolic 41–83
[2020-08-07] MEDS: KETOROLAC 30MG VIAL (30MG/ML) IV PRN (03:15)
[2020-08-07] MEDS: LACTATED RINGERS 1000ML 1,000 ML IV SCH (05:58)
[2020-08-07] MEDS: ZOSYN 3.375GM+NS 50ML 50 ML IV SCH ×3 (06:24→22:04)
[2020-08-07 06:57] LABS: HEMATOCRIT 23.5 % (42-54); MEAN CORPUSCULAR HEMOGLOBIN 28.1 pg (27.0-33.0); MEAN CORPUSCULAR HGB CONC 32.8 g/dL (32.0-36.0); MEAN CORPUSCULAR VOLUME 85.8 fL (79-99); RED BLOOD CELL COUNT(AUTO) 2.74 MIL/uL (4.50-6.20); RED CELL DISTRIBUTION WIDTH 13.2 % (11.0-15.5); WHITE BLOOD COUNT (AUTO) 4.5 K/uL (4.8-10.8)
[2020-08-07 07:05] LABS: CREATININE 1.3 mg/dL (0.5-1.5); MAGNESIUM 1.7 mg/dL (1.80-2.40); POTASSIUM 3.4 mmol/L (3.5-5.1)
[2020-08-07] MEDS: INSULIN HUMULIN R 100 UNIT/ML 3ML SQ SCH ×4 (07:30→21:00)
[2020-08-07] MEDS: SPIRONOLACTONE 25 MG TAB PO SCH (08:33)
[2020-08-07] MEDS: DOCUSATE SODIUM 100 MG CAP PO SCH ×2 (08:33→21:54)
[2020-08-07] MEDS: PANTOPRAZOLE 40 MG TAB DR PO SCH (08:33)
[2020-08-07] MEDS: LISINOPRIL 10 MG TABLET PO SCH (08:33)
[2020-08-07] MEDS: HYDROCORTISONE 25 MG SUPPOSITORY PR SCH ×2 (08:34→22:03)
[2020-08-07] MEDS: CYANOCOBALAMIN (VITAMIN B-12) 1,000 MCG TABLET PO SCH (08:34)
[2020-08-07] MEDS: CHOLECALCIFEROL 100 MCG PO SCH (08:34)
[2020-08-07] MEDS: LACTULOSE 20 GM/30 ML UDCUP PO SCH ×2 (08:34→21:54)
[2020-08-07] MEDS: ENOXAPARIN SODIUM 40 MG/0.4 ML SYRINGE SQ SCH (08:34)
[2020-08-07] MEDS ORDERED: POTASSIUM CHLORIDE 10% ELIXIR 20 MEQ/15 ML UDCUP PO PRN (08:45)
[2020-08-07] MEDS ORDERED: LIDOCAINE HCL-MPF 1% 2ML VIAL IV PRN ×2 (08:45)
[2020-08-07] MEDS ORDERED: POTASSIUM CHLORIDE 20MEQ/100ML 100 ML IV PRN ×2 (08:45)
[2020-08-07] MEDS: HYDROCODONE/ACETAMINOPHEN 5/325 MG TAB PO PRN ×2 (09:00→16:46)
[2020-08-08] MEDS: HYDROCODONE/ACETAMINOPHEN 5/325 MG TAB PO PRN ×2 (00:53→09:55)
[2020-08-08 04:00] VITALS: BP 116/59
[2020-08-08 06:22] LABS: HEMATOCRIT 24.1 % (42-54); MEAN CORPUSCULAR HEMOGLOBIN 28.1 pg (27.0-33.0); MEAN CORPUSCULAR HGB CONC 32.8 g/dL (32.0-36.0); MEAN CORPUSCULAR VOLUME 85.8 fL (79-99); RED BLOOD CELL COUNT(AUTO) 2.81 MIL/uL (4.50-6.20); RED CELL DISTRIBUTION WIDTH 13.4 % (11.0-15.5); WHITE BLOOD COUNT (AUTO) 4.1 K/uL (4.8-10.8)
[2020-08-08 06:23] LABS: CREATININE 1.3 mg/dL (0.5-1.5); POTASSIUM 3.2 mmol/L (3.5-5.1)
[2020-08-08] MEDS: ZOSYN 3.375GM+NS 50ML 50 ML IV SCH (06:45)
[2020-08-08] MEDS: INSULIN HUMULIN R 100 UNIT/ML 3ML SQ SCH ×2 (07:30→11:30)
[2020-08-08 07:56] VITALS: BP 117/50
[2020-08-08] MEDS: HYDROCORTISONE 25 MG SUPPOSITORY PR SCH (09:00)
[2020-08-08] MEDS: CHOLECALCIFEROL 100 MCG PO SCH (09:00)
[2020-08-08] MEDS: KCL 20 MEQ ERTAB PO PRN ×2 (09:40→09:43)
[2020-08-08] MEDS: MAGNESIUM 2GM PREMIX 50ML 50 ML IV PRN (09:40)
[2020-08-08] MEDS: SPIRONOLACTONE 25 MG TAB PO SCH (09:40)
[2020-08-08] MEDS: DOCUSATE SODIUM 100 MG CAP PO SCH (09:40)
[2020-08-08] MEDS: LACTULOSE 20 GM/30 ML UDCUP PO SCH (09:41)
[2020-08-08] MEDS: LISINOPRIL 10 MG TABLET PO SCH (09:41)
[2020-08-08] MEDS: CYANOCOBALAMIN (VITAMIN B-12) 1,000 MCG TABLET PO SCH (09:41)
[2020-08-08] MEDS: PANTOPRAZOLE 40 MG TAB DR PO SCH (09:41)
[2020-08-08] MEDS: ENOXAPARIN SODIUM 40 MG/0.4 ML SYRINGE SQ SCH (09:42)
[2020-08-08 11:00] VITALS: BP 134/50
[2021-01-18] MEDS ORDERED: METF-444 PO (16:15)
[2021-01-18] MEDS ORDERED: LACT10SO62 PO (16:15)
== END 2020-08-08 18:35 | disposition home or self-care (01) | DRG 331 ==
LOC: EDH 11:30 → EDHIP 14:31 → 3AH 16:18
PROVIDERS: ADMIT Internal Medicine; ATTEND Internal Medicine
PROC: 0D9670Z Drainage of Stomach with Drainage Device, Via Natural or Artificial Opening (ICD-10-PCS; 2020-07-30)
PROC: 0DNU0ZZ Release Omentum, Open Approach (ICD-10-PCS; 2020-08-01)
PROC: 0DN80ZZ Release Small Intestine, Open Approach (ICD-10-PCS; 2020-08-01)
PROC: 0DB80ZZ Excision of Small Intestine, Open Approach (ICD-10-PCS; principal; 2020-08-01 10:45)
DX: K56.609 Unspecified intestinal obstruction, unspecified as to partial versus complete obstruction (principal); N18.9 Chronic kidney disease, unspecified; I12.9 Hypertensive chronic kidney disease with stage 1 through stage 4 chronic kidney disease, or unspecified chronic kidney disease; E11.22 Type 2 diabetes mellitus with diabetic chronic kidney disease; K74.60 Unspecified cirrhosis of liver; F12.90 Cannabis use, unspecified, uncomplicated; K66.0 Peritoneal adhesions (postprocedural) (postinfection); K59.03 Drug induced constipation; K64.8 Other hemorrhoids; F14.90 Cocaine use, unspecified, uncomplicated; Z20.822 Contact with and (suspected) exposure to COVID-19; K56.7 Ileus, unspecified; T40.605A Adverse effect of unspecified narcotics, initial encounter; Z68.29 Body mass index [BMI] 29.0-29.9, adult; Y92.89 Other specified places as the place of occurrence of the external cause; Z86.11 Personal history of tuberculosis; Z87.891 Personal history of nicotine dependence; Z78.9 Other specified health status; Z83.3 Family history of diabetes mellitus; Z82.49 Family history of ischemic heart disease and other diseases of the circulatory system
CPT/HCPCS: 36415; 71045; 71270; 74018; 74176; 80048; 80053; 80305; 81001; 82150; 82948; 83605; 83690; 83735; 84100; 85025; 85027; 85610; 85730; 87116; 87206; 87426; 88307; 93005; 94664; 97039; A4344; G0378; J1170; J1650; J1815; J1885; J2250; J2405; J2543; J3010; J3430; J3475; J3490; J7030; J7120; P9047; Q9967; U0003

== ENCOUNTER 2021-08-10 15:16 | Observation (INO) | payer OTHER ==
[~2021-08-10] VITALS: Ht 167.6 cm; Wt 77.6 kg
[~2021-08-10 15:16] MED LIST changes: -CHOL200013 PO; -LACT10SO5 PO; +LACT10SO62 PO; +METF-444 PO; -[UNRECOGNIZED DRUG - CODE] PO
[2021-08-10 16:35] LABS: BASOPHILS % (AUTO) 0.8 % (0.0-5.0); EOSINOPHILS % (AUTO) 1.3 % (0.0-8.0); LYMPHOCYTES % (AUTO) 8.7 % (21.0-51.0); MEAN CORPUSCULAR HEMOGLOBIN 28.3 pg (27.0-33.0); MEAN CORPUSCULAR HGB CONC 34.7 g/dL (32.0-36.0); MEAN CORPUSCULAR VOLUME 81.4 fL (79-99); MONOCYTES % (AUTO) 12.9 % (3.0-13.0); NEUTROPHILS % (AUTO) 74.7 % (40.0-77.0); PLATELET COUNT (AUTO) 215 K/uL (130-400); RED BLOOD CELL COUNT(AUTO) 4.42 MIL/uL (4.50-6.20); RED CELL DISTRIBUTION WIDTH 13.8 % (11.0-15.5); WHITE BLOOD COUNT (AUTO) 7.5 K/uL (4.8-10.8)
[2021-08-10 16:58] LABS: CREATININE 3.8 mg/dL (0.5-1.5); POTASSIUM 3.7 mmol/L (3.5-5.1)
[2021-08-10 17:02] LABS: ALBUMIN 4.1 g/dL (3.5-5.0); BILIRUBIN,TOTAL 0.8 mg/dL (0.2-1.0); TOTAL PROTEIN, SERUM 8.3 g/dL (6.0-8.3)
[2021-08-10 17:03] LABS: APPEARANCE,URINE CLEAR (CLEAR); BILIRUBIN,URINE NEGATIVE (NEGATIVE); COLOR,URINE YELLOW (YELLOW); GLUCOSE, URINE (UA) NEGATIVE (NEGATIVE); KETONES,URINE NEGATIVE (NEGATIVE); LEUKOCYTE ESTERASE ,URINE NEGATIVE (NEGATIVE); NITRATE,URINE NEGATIVE (NEGATIVE); OCCULT BLOOD,URINE TRACE-INTACT (NEGATIVE); PROTEIN,URINE TRACE mg/dL (NEGATIVE); UROBILINOGEN,URINE 0.2 mg/dL (0.2-1.0)
[2021-08-10 17:10] LABS: AMPHET/METH SCREEN,URINE NEGATIVE (NEGATIVE); BACTERIA,URINE Few /HPF (None Seen); BARBITURATE SCREEN, URINE NEGATIVE (NEGATIVE); BENZODIAZEPINES SCREEN,URINE NEGATIVE (NEGATIVE); CANNABINOID SCREEN,URINE POSITIVE (NEGATIVE); COCAINE SCREEN,URINE NEGATIVE (NEGATIVE); FINE GRANULAR CASTS,URINE 26-50 /LPF (None Seen); MUCUS,URINE Rare LPF (None Seen); OPIATE SCREEN,URINE NEGATIVE (NEGATIVE); PHENCYCLIDINE SCREEN,URINE NEGATIVE (NEGATIVE); SQUAMOUS EPITHELIAL CELL,UR Rare /HPF (0-2)
[2021-08-10] MEDS ORDERED: 0.9%NACL 1000ML 1,000 ML IV SCH ×2 (17:30→18:30)
[2021-08-10] MEDS ORDERED: 0.9%NACL 1000ML 1,000 ML IV ONE (17:39)
[2021-08-10 17:42] LABS: CREATINE KINASE, TOTAL 274 U/L (21-232)
[2021-08-10 18:21] LABS: AMMONIA 46 umol/L (11-32)
[2021-08-10] MEDS ORDERED: ACETAMINOPHEN 325 MG TAB PO PRN (18:30)
[2021-08-10] MEDS ORDERED: HYDRALAZINE 20MG/ML VIAL IV PRN (18:30)
[2021-08-10] MEDS: ONDANSETRON 4MG INJ IVP PRN (20:30)
[2021-08-10] MEDS ORDERED: METOCLOPRAMIDE 10 MG/2 ML VIAL ONE (23:10)
[2021-08-10] MEDS: INSULIN HUMULIN R 100 UNIT/ML 3ML SQ SCH (23:50)
[2021-08-11] MEDS: ONDANSETRON 4MG INJ IVP PRN (00:04)
[2021-08-11] MEDS ORDERED: SODIUM BICARB 50MEQ 50ML VIAL IV STA (01:54)
[2021-08-11] MEDS ORDERED: SODIUM BICARB 8.4% 50ML SYRING 150 MEQ in DEXTROSE 5%-WATER 1,000 ML IV SCH (02:00)
[2021-08-11] MEDS ORDERED: SODIUM BICARB 50MEQ 50ML VIAL 50 ML ONE (02:12)
[2021-08-11] MEDS ORDERED: DEXTROSE 5%-WATER 1,000 ML IV ONE (02:50)
[2021-08-11] MEDS ORDERED: SODIUM BICARB 50MEQ 50ML VIAL 150 ML ONE (02:57)
[2021-08-11 03:00] VITALS: BP 145/76
[2021-08-11] MEDS: LEVOFLOXACIN 500 MG/D5W 100 ML 100 ML IV SCH (03:05)
[2021-08-11 05:26] LABS: BASOPHILS % (AUTO) 0.4 % (0.0-5.0); EOSINOPHILS % (AUTO) 0.1 % (0.0-8.0); LYMPHOCYTES % (AUTO) 6.6 % (21.0-51.0); MEAN CORPUSCULAR HEMOGLOBIN 27.9 pg (27.0-33.0); MEAN CORPUSCULAR VOLUME 79.8 fL (79-99); MONOCYTES % (AUTO) 5.8 % (3.0-13.0); NEUTROPHILS % (AUTO) 85.6 % (40.0-77.0); PLATELET COUNT (AUTO) 188 K/uL (130-400); RED BLOOD CELL COUNT(AUTO) 4.01 MIL/uL (4.50-6.20); RED CELL DISTRIBUTION WIDTH 13.4 % (11.0-15.5); WHITE BLOOD COUNT (AUTO) 7.1 K/uL (4.8-10.8)
[2021-08-11 06:01] LABS: CREATININE 2.3 mg/dL (0.5-1.5); MAGNESIUM 1.8 mg/dL (1.80-2.40); POTASSIUM 3.7 mmol/L (3.5-5.1)
[2021-08-11] MEDS: METRONIDAZOLE 500MG/100ML BAG 100 ML IVPB SCH ×3 (06:14→21:28)
[2021-08-11] MEDS: INSULIN HUMULIN R 100 UNIT/ML 3ML SQ SCH ×3 (06:16→20:40)
[2021-08-11 07:00] VITALS: BP 129/68
[2021-08-11] MEDS ORDERED: PANTOPRAZOLE 40 MG/VIAL IVP SCH (09:00)
[2021-08-11 11:00] VITALS: BP 140/68
[2021-08-11] MEDS: DEXTROSE 5%-LACTATED RINGERS 1,000 ML IV SCH ×2 (13:00→22:55)
[2021-08-11] MEDS: LACTULOSE 20 GM/30 ML UDCUP PO SCH ×2 (13:01→20:42)
[2021-08-11] MEDS: PANTOPRAZOLE 40 MG TAB DR PO SCH (13:01)
[2021-08-11 15:00] VITALS: BP 102/66
[2021-08-11 19:00] VITALS: BP 137/70
[2021-08-12] VITALS: BP 113/65
[2021-08-12] MEDS: LEVOFLOXACIN 500 MG/D5W 100 ML 100 ML IV SCH (01:54)
[2021-08-12 04:00] VITALS: BP 134/70
[2021-08-12] MEDS: METRONIDAZOLE 500MG/100ML BAG 100 ML IVPB SCH ×2 (05:08→15:40)
[2021-08-12] MEDS: PANTOPRAZOLE 40 MG TAB DR PO SCH (05:19)
[2021-08-12 05:34] LABS: HEMATOCRIT 26.6 % (42-54); MEAN CORPUSCULAR HEMOGLOBIN 28.3 pg (27.0-33.0); MEAN CORPUSCULAR HGB CONC 35.7 g/dL (32.0-36.0); MEAN CORPUSCULAR VOLUME 79.2 fL (79-99); RED BLOOD CELL COUNT(AUTO) 3.36 MIL/uL (4.50-6.20); RED CELL DISTRIBUTION WIDTH 13.1 % (11.0-15.5); WHITE BLOOD COUNT (AUTO) 4.2 K/uL (4.8-10.8)
[2021-08-12 05:49] LABS: INR 1.14 (0.85-1.15); PROTHROMBIN TIME 12.3 SEC (9.6-11.6)
[2021-08-12 05:50] LABS: PARTIAL THROMBOPLASTIN TIME 29.4 SEC (26.3-35.5)
[2021-08-12 05:57] LABS: ALBUMIN 3.2 g/dL (3.5-5.0); BILIRUBIN,TOTAL 0.4 mg/dL (0.2-1.0); CREATININE 1.5 mg/dL (0.5-1.5); POTASSIUM 3.1 mmol/L (3.5-5.1); TOTAL PROTEIN, SERUM 6.3 g/dL (6.0-8.3)
[2021-08-12] MEDS: INSULIN HUMULIN R 100 UNIT/ML 3ML SQ SCH ×4 (05:58→16:30)
[2021-08-12 08:00] VITALS: BP 130/76
[2021-08-12] MEDS: LACTULOSE 20 GM/30 ML UDCUP PO SCH (09:01)
[2021-08-12 12:00] VITALS: BP 135/61
[2021-08-12] MEDS ORDERED: LIDOCAINE HCL-MPF 1% 2ML VIAL IV PRN (12:00)
[2021-08-12] MEDS ORDERED: POTASSIUM CHLORIDE 20MEQ/100ML 100 ML IV PRN (12:00)
[2021-08-12] MEDS ORDERED: POTASSIUM CHLORIDE 10% ELIXIR 20 MEQ/15 ML UDCUP PO PRN (12:00)
[2021-08-12] MEDS: KCL 20 MEQ ERTAB PO PRN ×3 (12:53→18:02)
[2021-08-12] MEDS: DEXTROSE 5%-LACTATED RINGERS 1,000 ML IV SCH (15:45)
[2021-08-12 16:00] VITALS: BP 97/61
[2021-08-12] MEDS ORDERED: LEVO500T90 PO (16:51)
== END 2021-08-12 18:20 | disposition home or self-care (01) ==
LOC: EDH 15:16 → EDHIP 18:21 → 3BH 08-11 01:07
PROVIDERS: ADMIT Internal Medicine Critical Care Medicine; ATTEND Internal Medicine Critical Care Medicine
DX: E86.0 Dehydration (principal); N17.9 Acute kidney failure, unspecified; R19.7 Diarrhea, unspecified; K74.60 Unspecified cirrhosis of liver; E11.9 Type 2 diabetes mellitus without complications; F12.90 Cannabis use, unspecified, uncomplicated; E86.9 Volume depletion, unspecified; Z79.899 Other long term (current) drug therapy
CPT/HCPCS: 36415 ×3; 71045; 74176; 80048; 80053 ×2; 80305; 81001; 82010; 82140 ×2; 82150; 82550; 82948 ×7; 83605; 83630; 83690 ×2; 83735; 84145; 84484; 85025 ×2; 85027; 85610; 85730; 87046; 93005; 96361 ×5; 96365; 96366 ×2; 96367; 96368; 96375; 96376; 99285; G0378 ×47; J1815; J1956 ×2; J2405 ×2; J2765; J3490 ×9; J7030; J7070 ×2

== ENCOUNTER 2023-06-14 08:26 | Emergency (ER) | payer OTHER ==
[~2023-06-14] VITALS: Ht 167.6 cm; Wt 81.6 kg
[~2023-06-14 08:26] MED LIST changes: -LACT10SO62 PO; +LACT10SO95 PO; +LEVO-70 PO; +OMEP20TA20 PO; -OMEP20TA25 PO
[2023-06-14 08:28] VITALS: BP 125/67; PULSE 86; RESP 16
[2023-06-14 10:43] LABS: BASOPHILS # (AUTO) 0.04 K/uL (0.00-0.20); BASOPHILS % (AUTO) 0.5 % (0.0-5.0); EOSINOPHILS # (AUTO) 0.18 K/uL (0.00-0.70); EOSINOPHILS % (AUTO) 2.2 % (0.0-8.0); HEMATOCRIT 32.7 % (42-54); IMMATURE GRANULOCYTE ABSOLUTE 0.14 K/uL (0-1); LYMPHOCYTES # (AUTO) 0.9 K/uL (1.0-4.8); LYMPHOCYTES % (AUTO) 11.2 % (21.0-51.0); MEAN CORPUSCULAR VOLUME 87.7 fL (79-99); MONOCYTES # (AUTO) 0.3 K/uL (0.1-1.0); MONOCYTES % (AUTO) 3.7 % (3.0-13.0); NEUTROPHILS # (AUTO) 6.5 K/uL (1.8-7.7); NEUTROPHILS % (AUTO) 80.7 % (40.0-77.0); PLATELET COUNT (AUTO) 223 K/uL (130-400); RED BLOOD CELL COUNT(AUTO) 3.73 MIL/uL (4.50-6.20); RED CELL DISTRIBUTION WIDTH 13.7 % (11.0-15.5); WHITE BLOOD COUNT (AUTO) 8.1 K/uL (4.8-10.8)
[2023-06-14 11:04] LABS: APPEARANCE,URINE CLEAR (CLEAR); BILIRUBIN,URINE NEGATIVE (NEGATIVE); COLOR,URINE LIGHT-YELLOW (YELLOW); GLUCOSE, URINE (UA) NEGATIVE (NEGATIVE); KETONES,URINE NEGATIVE (NEGATIVE); LEUKOCYTE ESTERASE ,URINE NEGATIVE Leu/uL (NEGATIVE); NITRATE,URINE NEGATIVE (NEGATIVE); OCCULT BLOOD,URINE NEGATIVE (NEGATIVE); PH,URINE 5.5 (5.0-8.0); PROTEIN,URINE NEGATIVE (NEGATIVE); UROBILINOGEN,URINE 0.2 mg/dL (0.2-1.0)
[2023-06-14 11:05] LABS: ADD UA MICROSCOPIC NO
[2023-06-14] MEDS ORDERED: SULF1TAB42 PO (11:36)
[2023-06-14 12:25] LABS: ERYTHROCYTE SEDIMENTATION RATE 77 MM/HR (0-20)
[2023-06-14 12:36] LABS: ALBUMIN 3.7 g/dL (3.5-5.0); BILIRUBIN,TOTAL 0.3 mg/dL (0.2-1.0); CREATININE 1.2 mg/dL (0.5-1.5); POTASSIUM 5.9 mmol/L (3.5-5.1); TOTAL PROTEIN, SERUM 7.8 g/dL (6.0-8.3)
[2023-06-14] MEDS ORDERED: CEPH500B PO (12:53)
[2023-06-14] MEDS ORDERED: KAYEXALATE 15GM/60ML PO ONE (13:00)
== END 2023-06-14 13:32 | disposition home or self-care (01) ==
LOC: EDH 08:26
DX: L03.115 Cellulitis of right lower limb (principal); E87.5 Hyperkalemia; M79.661 Pain in right lower leg; E11.9 Type 2 diabetes mellitus without complications; Z79.84 Long term (current) use of oral hypoglycemic drugs; Z90.49 Acquired absence of other specified parts of digestive tract
CPT/HCPCS: 36415; 71045; 73590; 80053; 81003; 83690; 85025; 85651; 93005; 93971